=== PATIENT | female | born 1945 | race Caucasian/White ===

== ENCOUNTER → 2016-08-16 | Outpatient (CLI) | payer MEDICARE, OTHER ==
[2016-08-16 09:32] LABS: GLUCOSE,CSF 57 mg/dL (50-80); TOTAL PROTEIN,CSF 31 mg/dL (20-45)
== END ==
LOC: RAD 07:25
PROVIDERS: Psychiatry & Neurology Neurology
DX: G37.9 Demyelinating disease of central nervous system, unspecified (principal)
CPT/HCPCS: 36415; 77003; 82040; 82784; 82945; 83873; 83916; 84157; 87070; 87205; 89051

== ENCOUNTER → 2021-03-09 | Outpatient (CLI) | payer OTHER | LOC: MAMO 09:41 | DX: Z12.31 Encounter for screening mammogram for malignant neoplasm of breast (principal) | CPT/HCPCS: 77063; 77067 ==

== ENCOUNTER 2021-05-31 00:30 | Inpatient (IN) | payer OTHER ==
[~2021-05-31] VITALS: Ht 162.6 cm; Wt 80.3 kg
[~2021-05-31 00:30] MED LIST: PREDNISONE20 MG PO
[2021-05-31 00:56] LABS: HEMOGLOBIN 11.9 gm/dl (12.3-15.3); RED BLOOD COUNT 3.93 M/UL (4.00-5.10)
[2021-05-31 01:18] LABS: WHITE BLOOD COUNT 41.2 K/UL (4.5-11.0)
[2021-05-31 01:25] LABS: BUN/CREATININE RATIO 31 (0-10)
[2021-05-31 16:30] LABS: BORDETELLA PARAPERTUSSIS Not Detected (Not Detectd); BORDETELLA PERTUSSIS Not Detected (Not Detectd); CHLAMYDIA PNEUMONIAE Not Detected (Not Detectd); CORONAVIRUS HKU1 Not Detected (Not Detectd); CORONAVIRUS NL63 Not Detected (Not Detectd); CORONAVIRUS OC43 Not Detected (Not Detectd); CORONOAVIRUS 229E Not Detected (Not Detectd); HUMAN METAPNEUMOVIRUS Not Detected (Not Detectd); HUMAN RHINOVIRUS/ENTEROVIRUS Not Detected (Not Detectd); INFLUENZA A Not Detected (Not Detectd); INFLUENZA B Not Detected (Not Detectd); MYCOPLASMA PNEUMONIAE Not Detected (Not Detectd); PARAINFLUENZA VIRUS 1 Not Detected (Not Detectd); PARAINFLUENZA VIRUS 2 Not Detected (Not Detectd); PARAINFLUENZA VIRUS 3 Not Detected (Not Detectd); PARAINFLUENZA VIRUS 4 Not Detected (Not Detectd)
[2021-05-31 18:37] LABS: RESPIRATORY SYNCYTIAL VIRUS DETECTED (Not Detectd); SARS-CoV-2 NOT DETECTED (Not Detectd)
[2021-05-31] MEDS ORDERED: QUETIAPINE FUMA25 MG PO (19:09)
[2021-05-31] MEDS ORDERED: MIRTAZAPINE15 MG PO (19:11)
[2021-05-31] MEDS ORDERED: FLONASE ALLER15.8 ML (19:12)
[2021-05-31] MEDS ORDERED: QUESTRAN LIGHT 44 GM PO (19:12)
[2021-05-31] MEDS ORDERED: RYBELSUS7 MG PO (19:13)
[2021-05-31] MEDS ORDERED: LOSARTAN POTAS100 MG PO (19:13)
[2021-05-31] MEDS ORDERED: ATORVASTATIN CA20 MG PO (19:13)
[2021-05-31] MEDS ORDERED: CELEXA20 MG PO (19:13)
[2021-05-31] MEDS ORDERED: HYDROXYZINE HCL10 MG PO (19:14)
[2021-05-31] MEDS ORDERED: CHLORTHALIDONE25 MG PO (19:14)
[2021-05-31] MEDS ORDERED: OMEPRAZOLE40 MG PO (19:15)
[2021-05-31] MEDS ORDERED: METFORMIN HCL1000 MG PO (19:15)
[2021-05-31] MEDS ORDERED: PROAIR DIGIHAL90 MCG INH (19:16)
[2021-05-31] MEDS ORDERED: NORVASC10 MG PO (19:16)
[2021-06-01 05:49] LABS: HEMOGLOBIN 9.6 gm/dl (12.3-15.3); RED BLOOD COUNT 3.22 M/UL (4.00-5.10); WHITE BLOOD COUNT 36.2 K/UL (4.5-11.0)
[2021-06-01] MEDS ORDERED: ENOXAPARIN40 MG/0.4 SC (17:02)
[2021-06-01] MEDS ORDERED: [UNRECOGNIZED DRUG - OTHER] (17:02)
[2021-06-01] MEDS ORDERED: SLIDINGSCALE INSULIN (17:02)
[2021-06-02 04:49] LABS: HEMOGLOBIN 9.6 gm/dl (12.3-15.3); RED BLOOD COUNT 3.27 M/UL (4.00-5.10)
[2021-06-02 04:51] LABS: WHITE BLOOD COUNT 30.3 K/UL (4.5-11.0)
[2021-06-02 05:48] LABS: BUN/CREATININE RATIO 20 (0-10)
[2021-06-03 01:01] LABS: ACINETOBACTER BAUMANNII Not Detected (Negative); CANDIDA ALBICANS Not Detected (Negative); CANDIDA KRUSEI Not Detected (Negative); CANDIDA TROPICALIS Not Detected (Negative); ENTEROCOCCUS Not Detected (Negative); ESCHERICHIA COLI Not Detected (Negative); HAEMOPHILUS INFLUENZAE Not Detected (Negative); KLEBSIELLA OXYTOCA Not Detected (Negative); KLEBSIELLA PNEUMONIAE Not Detected (Negative); KPC-CARBAPENEM-RESISTANCE GENE Not Detected (Negative); PROTEUS Not Detected (Negative); PSEUDOMONAS AERUGINOSA Not Detected (Negative); SERRATIA MARCESANS Not Detected (Negative); STREP AGALACTIAE (GROUP B) Not Detected (Negative); STREP PYOGENES (GROUP A) Not Detected (Negative); STREPTOCOCCUS Not Detected (Negative); vanA/B (VANCOMYCIN RESIST GENE Not Detected (Negative)
[2021-06-03 02:14] LABS: STAPHYLOCOCCUS DETECTED (Negative); STAPHYLOCOCCUS AUREUS DETECTED (Negative); mecA (METHICILLIN RESIST GENE DETECTED (Negative)
== END 2021-06-02 19:22 | disposition short-term general hospital (02) | DRG 871 ==
LOC: ER1 00:30 → CDU 06:06 → CCU 06:06
PROVIDERS: Emergency Medicine; Internal Medicine; ADMIT Internal Medicine
PROC: B24BZZZ Ultrasonography of Heart with Aorta (ICD-10-PCS; principal; 2021-05-31)
PROC: 5A09357 Assistance with Respiratory Ventilation, Less than 24 Consecutive Hours, Continuous Positive Airway Pressure (ICD-10-PCS; 2021-05-31)
PROC: 0W9930Z Drainage of Right Pleural Cavity with Drainage Device, Percutaneous Approach (ICD-10-PCS; 2021-05-31)
DX: A41.9 Sepsis, unspecified organism (principal); J85.0 Gangrene and necrosis of lung; Z20.822 Contact with and (suspected) exposure to COVID-19; J15.212 Pneumonia due to Methicillin resistant Staphylococcus aureus; J80 Acute respiratory distress syndrome; J93.83 Other pneumothorax; J90 Pleural effusion, not elsewhere classified; E87.1 Hypo-osmolality and hyponatremia; E87.2 Acidosis; I31.3 Pericardial effusion (noninflammatory); R65.20 Severe sepsis without septic shock; I07.1 Rheumatic tricuspid insufficiency; E87.6 Hypokalemia; E83.42 Hypomagnesemia; I10 Essential (primary) hypertension; E11.9 Type 2 diabetes mellitus without complications; G47.33 Obstructive sleep apnea (adult) (pediatric); Z79.4 Long term (current) use of insulin; Z79.84 Long term (current) use of oral hypoglycemic drugs; Z90.710 Acquired absence of both cervix and uterus; Z82.49 Family history of ischemic heart disease and other diseases of the circulatory system; Z87.01 Personal history of pneumonia (recurrent); Z80.0 Family history of malignant neoplasm of digestive organs
CPT/HCPCS: ECHO; 32551; 36415; 36600; 51702; 71045; 71260; 80048; 80053; 80202; 81001; 82550; 82553; 82803; 82962; 83605; 83735; 83874; 83880; 84484; 85025; 85027; 86140; 87040; 87070; 87077; 87081; 87150; 87186; 87205; 87633; 93306; 94640; 94660; 94664; 94760; 96374; 96375; 99285; C1729; C9113; J0456; J0696; J1100; J1170; J1650; J1940; J2250; J2270; J2543; J3370; J3475; J7030; J7070; Q9967; U0002

== ENCOUNTER → 2021-12-06 | Outpatient (CLI) | payer MEDICARE ==
[~2021-12-06] MED LIST changes: +ATORVASTATIN CA20 MG PO; +CELEXA20 MG PO; +CHLORTHALIDONE25 MG PO; +ENOXAPARIN40 MG/0.4 SC; +FLONASE ALLER15.8 ML; +HYDROXYZINE HCL10 MG PO; +LOSARTAN POTAS100 MG PO; +METFORMIN HCL1000 MG PO; +MIRTAZAPINE15 MG PO; +NORVASC10 MG PO; +OMEPRAZOLE40 MG PO; +PROAIR DIGIHAL90 MCG INH; +QUESTRAN LIGHT 44 GM PO; +QUETIAPINE FUMA25 MG PO; +RYBELSUS7 MG PO; +SLIDINGSCALE INSULIN; +[UNRECOGNIZED DRUG - OTHER]
== END ==
LOC: US 07:12
DX: K76.0 Fatty (change of) liver, not elsewhere classified (principal)
CPT/HCPCS: 76705

== ENCOUNTER → 2022-01-10 | Outpatient (CLI) | payer MEDICARE | LOC: HEART 5 08:00 | DX: I25.10 Atherosclerotic heart disease of native coronary artery without angina pectoris (principal); R07.9 Chest pain, unspecified; R94.39 Abnormal result of other cardiovascular function study | CPT/HCPCS: 78452; A9502; J2785 ==